=== PATIENT | female | born 1995 | race Caucasian/White ===

== ENCOUNTER 2016-07-15 23:34 | Emergency (ER) | payer OTHER ==
[~2016-07-15] VITALS: Ht 160 cm; Wt 92.0 kg
[2016-07-15 23:53] VITALS: Ht 160 cm; Wt 92.0 kg
[2016-07-16] MEDS ORDERED: AMOX1TAB10 PO (03:00)
--- NOTE | 2016-07-16 03:00 | ERD ---
ER Documentation Chief Complaint Date/Time DATE: 07/16/16 TIME: 02:57 Chief Complaint Fever and ST x2 days HPI 20-year-old female presents to the emergency room for fever and sore throat for 3 days. Denies headache, loss of consciousness, dizziness, blurry vision, changes in vision, photophobia, facial pain, ear pain, difficulty swallowing, neck pain, shoulder pain, chest pain, cough, hemoptysis, abdominal pain, back pain, loss of appetite, nausea, vomiting, hematochezia, diarrhea, constipation, urinary symptoms, , the possibility of being , bladder and bowel incontinences, extremity weakness, extremity tenderness, numbness or tingling sensation, difficulty walking, recent travel, recent exposure to illness, recent antibiotic use in the last 3 months . A0 LMP:06/23/2016 Past medical history. No surgical history. Not taking any medications at home. Social history: Works in [employer]. Occasionally drinks alcoholic beverages. Denies smoking cigarettes, use of illegal drugs. ROS All systems reviewed and are negative except as per history of present illness. Medications Home Meds Active Scripts Acetaminophen* (Tylophen*) 500 Mg Capsule, 1 CAP PO Q6H Y for PAIN AND OR ELEVATED TEMP, #20 CAP Prov:PASILABAN,CHRISTOPHERAR F 07/16/16 Ibuprofen* (Motrin*) 800 Mg Tab, 800 MG PO Q6H Y for PAIN AND OR ELEVATED TEMP, #30 TAB Prov:PASILABAN,CHRISTOPHERAR F 07/16/16 Amoxicillin/Potassium Clav (Amox-Clav 875-125 mg Tablet) 875-125 mg Tab, 1 TAB PO BID for 7 Days, #14 TAB Prov:AGUILAFREDCHRISTOPHERAR F 07/16/16 Allergies Allergies: Coded Allergies: No Known Allergy (Unverified , 07/15/16) PMhx/Soc Medical and Surgical Hx: pt denies Medical Hx, pt denies Surgical Hx Hx Alcohol Use: No Hx Substance Use: No Hx Tobacco Use: No Smoking Status: Never smoker Physical Exam Vitals Vital Signs Date Time Temp Pulse Resp B/P Pulse Ox O2 Delivery O2 Flow Rate FiO2 07/15/16 23:53 101.7 130 20 132/85 98 Physical Exam CONSTITUTIONAL: Well-appearing; well-nourished. HEAD: Normocephalic; atraumatic. EYES: Conjunctiva clear, sclera non-icteric, EOM intact. PERRLA Ears: Hearing intact. EACs clear, TMs non-bulging, non-inflamed, translucent & mobile, ossicles normal appearance, No obstructions, no erythema, no discharges Nose: No obstructions. No polyps. No external lesions. Mucosa non-inflamed. No external lesions, septum and turbinates normal. No rhinorrhea. No discharges. Frontal sinus is non-tender to palpation. Maxillary sinus is non-tender to palpation. MOUTH: Moist mucous membranes, no lesion, no obstructions, no vesicles, no thrush, patent airway Throat: Uvula in midline. Right tonsil is +2 with erythema, exudate. Left tonsil is +2 with erythema, exudate. Tolerating secretions well. Good gag reflex. Patent airway. Neck: Supple, without lesions, bruits, or adenopathy. No mass. Thyroid non- enlarged and non-tender to palpation. CHEST: Symmetrical chest. Respirations even and not labored. No retractions noted. CARDIOVASCULAR: Normal S1, S2. RRR. No murmurs, gallops. RESPIRATORY: Normal chest excursion with respiration; breath sounds clear and equal bilaterally; no wheezes, rhonchi, or rales. Breathing even and unlabored. Speaking in clear, full, and complete sentences w/ ease. ABDOMEN: Normal bowel sounds normal. Soft, round, non-distended, non-guarding, no tenderness, no rebound, no organomegaly, no masses, no pulsating abdominal mass. No hernia. No peritoneal signs. : No CVA tenderness. BACK: Symmetrical shoulder. Spine is midline without deformity, tenderness. No evidence of trauma or deformity. PELVIS: Stable pelvis. No evidence of trauma or deformity. MUSCULOSKELETAL: Normal gait and station. No misalignment, asymmetry, crepitation, defects, tenderness, masses, effusions, decreased range of motion, instability, atrophy or abnormal strength or tone in the head, neck, spine, ribs , pelvis or extremities. No calf tenderness. NEUROVASCULAR: Distal pulses are present. Pedal pulse are present, equal, and normal. Capillary refills are < 2 seconds. NEUROLOGIC: Alert and oriented x4. Speaks full and clear sentences. Cranial Nerves II-XII normal. Sensation to pain, touch, and proprioception normal. Grossly unremarkable. No neurologic deficits. Romberg test is negative. PSYCHOLOGICAL: The patients mood and manner are appropriate. No hallucinations , delusions. Not SI. Not HI. Has the capacity to decide for self SKIN: Normal for age and ethnicity; warm; dry; good turgor; no apparent lesions or exudates. No rashes, hives, discoloration. Intact. Results 24 hrs Current Medications Medications (Trade) Dose Ordered Sig/[place] Route PRN Reason Start Time Stop Time Status Last Admin Dose Admin Ibuprofen (Motrin) 800 mg ONCE ONCE PO 07/16/16 03:30 07/16/16 03:31 DC 07/16/16 03:23 Acetaminophen (Tylenol Tab) 500 mg ONCE STAT PO 07/16/16 03:03 07/16/16 03:05 DC 07/16/16 03:23 Procedures/MDM Examination: Please see physical examination. Disease process, medical treatment was explained to the patient and family member. They verbalized understanding and agreed with the medical treatment, and follow-up care. Treatment: Tylenol. Differential diagnosis: Peritonsillar abscess versus strep throat versus tonsillitis Medical decision makin-year-old female presents to the emergency room for fever and sore throat for 3 days. Patient's complaint, my physical findings, my re-evaluation are consistent with my final diagnosis of strep throat, fever. Medications prescribed are the following: Augmentin. Motrin. Tylenol. Patient and family member are made aware of the side effects and adverse reactions of the medications prescribed. Instructed on when to seek emergent and medical attention in case allergic/anaphylactic reactions or severe side effects and or adverse reactions to medications. Patient and family member verbalized understanding. Patient instructed Instructed to follow-up with his PCP in 24-48 hours. Patient stated she will see her primary care physician the next 24 hours. Instructed to Call 911 for chest pain, shortness of breath. Advised to come back here in ED as soon as possible for severity of symptoms which includes but not limited to: any new symptoms; shortness of breath/difficulty of breathing; cardiovascular changes; severe gastrointestinal symptoms; signs and symptoms of bleeding and or infection; signs of compartment syndrome/neurovascular changes; neurological changes/deficits. Patient and family member verbalized understanding. Upon discharge, patient is alert and oriented x 4, speaks full and clear sentences, denies pain, has no neurological deficits, has no neurovascular deficits, difficulty of breathing. Breathing even and unlabored. Lung sounds are clear to auscultation. Not in distress. Appears comfortable. Ambulatory with steady gait. Appears satisfied with care provided here in ED. Departure Diagnosis: Primary Impression: Sore throat Additional Impression: Strep throat Additional Instructions: Patient instructed Instructed to follow-up with his PCP in 24-48 hours. Patient stated she will see her primary care physician the next 24 hours. Instructed to Call 911 for chest pain, shortness of breath. Advised to come back here in ED as soon as possible for severity of symptoms which includes but not limited to: any new symptoms; shortness of breath/difficulty of breathing; cardiovascular changes; severe gastrointestinal symptoms; signs and symptoms of bleeding and or infection; signs of compartment syndrome/neurovascular changes; neurological changes/deficits. Patient and family member verbalized understanding. MARIOLA HERNANDEZ Jul 16, 2016 02:59
[2016-07-16] MEDS ORDERED: IBUP800T25 PO (03:01)
[2016-07-16] MEDS ORDERED: ACET500C5 PO (03:01)
[2016-07-16] MEDS ORDERED: ACETAMINOPHEN 500 MG TAB PO STA (03:03)
[2016-07-16] MEDS ORDERED: IBUPROFEN 800 MG TAB PO ONE (03:30)
== END 2016-07-16 03:26 | disposition home or self-care (01) ==
LOC: FTE 23:34
DX: J02.0 Streptococcal pharyngitis (principal)
CPT/HCPCS: Z7502; Z7610

== ENCOUNTER 2016-10-18 12:41 | Day surgery (SDC) | payer OTHER ==
[~2016-10-18] VITALS: Ht 160 cm; Wt 89.0 kg
[2016-10-18] VITALS (10 sets, daily range): BP systolic 103–120; BP diastolic 55–78; PULSE 58–71; RESP 12–22; Ht 160 cm; Wt 89.0 kg
[~2016-10-18 12:41] MED LIST: ACET500C5 PO; AMOX1TAB10 PO; IBUP800T25 PO
--- NOTE | 2016-10-18 14:23 | HPN ---
Date/Time of Note Date/Time of Note DATE: 10/18/16 TIME: 14:22 Interval H&P Admission Note Pt. seen H&P reviewed: No system changes CATINA MURPHY MD Oct 18, 2016 14:22
[2016-10-18] MEDS ORDERED: LIDOCAINE 2% (SDV) 5 ML INJ ONE (15:13)
[2016-10-18] MEDS ORDERED: PROPOFOL 20 ML ONE (15:13)
[2016-10-18] MEDS ORDERED: ROCURONIUM 50 MG INJ ONE (15:13)
[2016-10-18] MEDS ORDERED: NEOSTIGMINE 3 MG/3 ML SYRINGE ONE (15:13)
[2016-10-18] MEDS ORDERED: GLYCOPYRROLATE 0.4 MG INJ ONE (15:13)
[2016-10-18] MEDS ORDERED: SUCCINYLCHOLINE CHLORIDE 100 MG/5 ML SYG IV ONE (15:13)
[2016-10-18] MEDS ORDERED: DEXAMETHASONE 4 MG/ML 1 ML INJ ONE ×2 (15:29→15:35)
[2016-10-18] MEDS ORDERED: ONDANSETRON 4 MG INJ ONE (15:34)
--- NOTE | 2016-10-18 15:47 | OPR ---
Date/Time of Note Date/Time of Note DATE: 10/18/16 TIME: 15:45 Operative Report Procedure Date: Oct 18, 2016 Preoperative Diagnosis Chronic tonsillitis Postoperative Diagnosis Same Operation Performed Tonsillectomy Surgeon: CATINA MURPHY MD Anesthesia: general Estimated Blood Loss: minimal Specimens Tonsils Complications: None Pt Condition Post Procedure: stable Disposition: PACU Indications Recurrent infection Operative\Procedure Findings Symmetric Procedure Description Description of procedure: The patient was identified in the holding area. We had a discussion to confirm understanding of all indications risks benefits alternatives and postoperative care associated with the operation. The patient signed informed consent was taken to the operating room. The patient was laid supine on the operating room table and general anesthesia was achieved without difficulty. The face was draped in sterile fashion. A McIvor mouth gag was placed and used to retract the oral cavity open, taking care to avoid damage to the teeth. The oral cavity and pharynx were inspected and palpated to reveal symmetric hypertrophy. At this point the right palatine tonsil was grabbed superiorly with a curved Sherine clamp. It was retracted medially and monopolar cautery was used to enter the peritonsillar space. Dissection of the tonsil commenced in a superior to inferior fashion until it was completely resected. Suction Bovie cautery was used for spot hemostasis. At this point, the contralateral tonsil was removed in the exact similar fashion. There was no significant bleeding or oozing. Copious irrigation and suctioning was performed. Secondary inspection revealed no bleeding or oozing. The patient was awakened, extubated and taken to the PACU in stable condition. Complications: None CATINA MURPHY MD Oct 18, 2016 15:46
[2016-10-18] MEDS ORDERED: OXYCODONE/ACETAMINOPHEN (5/325) TAB PO PRN ×3 (16:00)
[2016-10-18] MEDS ORDERED: MEPERIDINE 25 MG INJ IV PRN (16:00)
[2016-10-18] MEDS ORDERED: MIDAZOLAM 1 MG/ML 2 ML INJ IV PRN (16:00)
[2016-10-18] MEDS ORDERED: ONDANSETRON 4 MG INJ IV PRN (16:00)
[2016-10-18] MEDS ORDERED: morphine (1 MG/ML) 10ML SYRINGE IV PRN ×3 (16:00)
[2016-10-18] MEDS ORDERED: DIPHENHYDRAMINE 50 MG INJ IV PRN (16:00)
[2016-10-18] MEDS ORDERED: METOCLOPRAMIDE 10 MG INJ IV PRN (16:00)
[2016-10-18] MEDS ORDERED: FENTAnyl 50 MCG/ML VIAL IV PRN ×3 (16:00)
== END 2016-10-18 17:15 | disposition home or self-care (01) ==
LOC: SDS 12:41
PROVIDERS: ATTEND Otolaryngology
DX: J35.01 Chronic tonsillitis (principal); E66.9 Obesity, unspecified; Z68.34 Body mass index [BMI] 34.0-34.9, adult
CPT/HCPCS: 42826; 84703; 88302; J1100; J2405; J7999; Z7512; Z7610; J2710

== ENCOUNTER 2016-10-18 18:41 | Emergency (ER) | END 2016-10-19 00:42 | disposition home or self-care (01) | DX: L76.22 Postprocedural hemorrhage of skin and subcutaneous tissue following other procedure (principal); F17.210 Nicotine dependence, cigarettes, uncomplicated ==